=== PATIENT | male | born 1955 | race Caucasian/White ===

== ENCOUNTER 2019-12-23 18:48 | Emergency (ER) | payer MEDICARE ==
[2019-12-23 18:54] VITALS: TEMP 97.5
--- NOTE | 2019-12-23 19:01 | ED ---
Trauma HPI - General Chief Complaint: Extremity Injury, Upper Stated Complaint: Fall Time Seen by Provider: 12/23/19 18:58 Source: patient Mode of arrival: wheelchair Limitations: no limitations - History of Present Illness Initial Comments: Patient is 64-year-old male presents emergency Department with chief complaint of a fall. Patient states he tripped on a cord on his basement and fell on his elbow but states his pain is located in the left shoulder. Patient reports the pain is very sharp and intense. Patient states he did not take any medication to be the symptoms. Patient reports he "jammed the left shoulder". Patient also reports an injury to the head. He states there is some bleeding in the left supraorbital region. He denies any blood thinners. Denied loss of consciousness time of incident. Patient states he had "a beer". - Related Data Allergies Allergy/AdvReac Type Severity Reaction Status Date / Time No Known Allergies Allergy Verified 12/23/19 18:54 Review of Systems ROS Statement: Those systems with pertinent positive or pertinent negative responses have been documented in the HPI. ROS Other: All systems not noted in ROS Statement are negative. Past Medical History Past Medical History: No Reported History History of Any Multi-Drug Resistant Organisms: None Reported Past Surgical History: No Surgical Hx Reported Past Psychological History: No Psychological Hx Reported Smoking Status: Current every day smoker Past Alcohol Use History: None Reported, Daily Past Drug Use History: None Reported General Exam Limitations: no limitations General appearance: alert, in no apparent distress Head exam: Present: normocephalic, normal inspection. Absent: atraumatic (Abrasion in the left supraorbital region. No pain with extracted movements. Small laceration about 1 cm with irregular edges in the left supraorbital region.), other (Negative Navarrete sign, raccoon eyes, hemotympanum.) Eye exam: Present: normal appearance, PERRL, EOMI Pupils: Present: normal accommodation ENT exam: Present: normal exam, normal oropharynx, mucous membranes moist, TM's normal bilaterally, normal external ear exam Neck exam: Present: normal inspection, full ROM. Absent: tenderness Respiratory exam: Present: normal lung sounds bilaterally. Absent: respiratory distress, wheezes Cardiovascular Exam: Present: regular rate, normal rhythm, normal heart sounds GI/Abdominal exam: Present: soft. Absent: distended, tenderness, guarding Extremities exam: Present: tenderness (Tenderness at the injury site especially at the proximal left humerus.), normal capillary refill, other (+2 ulnar and radial pulses bilateral.). Absent: normal inspection (Bony Deformity in the left shoulder and proximal humerus. Left distal forearm laceration about 1.5 cm.), full ROM (Limited range of motion the left upper extremity.) Back exam: Present: normal inspection, full ROM. Absent: tenderness Neurological exam: Present: alert, oriented X3 Psychiatric exam: Present: normal affect, normal mood Skin exam: Present: warm, dry, intact, normal color Course Vital Signs 12/23/19 12/23/19 12/23/19 18:50 19:50 19:53 Temperature 97.5 F L Pulse Rate 85 82 84 Respiratory 16 22 20 Rate Blood Pressure 143/92 133/90 118/87 O2 Sat by Pulse 99 100 100 Oximetry 12/23/19 12/23/19 12/23/19 19:58 20:00 20:05 Temperature Pulse Rate 88 84 86 Respiratory 19 15 18 Rate Blood Pressure 142/85 127/66 151/74 O2 Sat by Pulse 100 100 100 Oximetry 12/23/19 12/23/19 12/23/19 20:10 20:15 20:30 Temperature Pulse Rate 82 86 90 Respiratory 19 18 19 Rate Blood Pressure 124/99 159/98 115/91 O2 Sat by Pulse 100 100 99 Oximetry 12/23/19 12/23/19 12/23/19 20:45 21:00 21:15 Temperature Pulse Rate 89 86 80 Respiratory 20 18 18 Rate Blood Pressure 122/87 130/82 125/78 O2 Sat by Pulse 99 100 99 Oximetry Procedures - Orthopedic Joint Reduction Joint #1 Consent Obtained: verbal consent, written consent Side: left Joint Reduction Location: shoulder (Anterior shoulder dislocation) Analgesia: procedural sedation (Propofol) Amount of Anesthetic Used (mLs): 250 Shoulder Technique Used (if applicable): traction/counter-traction, external rotation Technique Used: traction/counter-traction, direct manipulation Post-Reduction Neuro Exam: intact Post-Reduction Vascular Exam: intact Post Reduction X-Ray Obtained: Yes Post Reduction X-Ray Results: reduced Splint Applied: Yes (Sling) Patient Tolerated Procedure: well, no complications Medical Decision Making - Medical Decision Making Patient is 64-year-old male presenting to emergency with chief complaint of a fall. Patient fell on his left elbow but appears to have most of his pain left shoulder. On exam there appears to be bony deformity over the left shoulder. X-ray reveals an anterior dislocation. Patient was sedated using propofol and reduction of the left shoulder was performed. was present in the examination room throughout the whole procedure. Patient tolerated procedure well. Post reduction x-rays reveal a reduced left shoulder. Patient was given analgesia initially. He will be discharged with Tylenol 3 starter pack and advised not to drive or operate heavy machinery when taking the medication. He was advised to follow with project management specialist. Patient also had a headache injury. CT imaging offered, he declined. Patient also had 2 small lacerations in the left forearm and the left supraorbital region. Suturing was offered, patient declined. Steri-Strips were applied. Tetanus is up-to-date. Strict return parameters were thoroughly discussed the patient was understanding and agreeable. Case discussed with physician. - Lab Data Result diagrams: 12/23/19 19:37 12/23/19 19:37 Lab Results 12/23/19 12/23/19 12/23/19 Range/Units 19:37 19:37 19:37 WBC 14.1 H (3.8-10.6) k/uL RBC 5.29 (4.30-5.90) m/uL Hgb 16.5 (13.0-17.5) gm/dL Hct 50.2 (39.0-53.0) % MCV 94.9 (80.0-100.0) fL MCH 31.2 (25.0-35.0) pg MCHC 32.9 (31.0-37.0) g/dL RDW 13.5 (11.5-15.5) % Plt Count 278 (150-450) k/uL Neutrophils % 77 % Lymphocytes % 14 % Monocytes % 5 % Eosinophils % 2 % Basophils % 1 % Neutrophils # 10.8 H (1.3-7.7) k/uL Lymphocytes # 2.0 (1.0-4.8) k/uL Monocytes # 0.7 (0-1.0) k/uL Eosinophils # 0.3 (0-0.7) k/uL Basophils # 0.1 (0-0.2) k/uL PT 9.7 (9.0-12.0) sec INR 0.9 (<1.2) APTT 20.4 L (22.0-30.0) sec Sodium 138 (137-145) mmol/L Potassium 4.3 (3.5-5.1) mmol/L Chloride 105 (98-107) mmol/L Carbon Dioxide 23 (22-30) mmol/L Anion Gap 10 mmol/L BUN 16 (9-20) mg/dL Creatinine 1.07 (0.66-1.25) mg/dL Est GFR (CKD-EPI)AfAm 85 (>60 ml/min/1.73 sqM) Est GFR (CKD-EPI)NonAf 73 (>60 ml/min/1.73 sqM) Glucose 116 H (74-99) mg/dL Calcium 10.0 (8.4-10.2) mg/dL Total Bilirubin 0.6 (0.2-1.3) mg/dL AST 112 H (17-59) U/L ALT 124 H (4-49) U/L Alkaline Phosphatase 116 (38-126) U/L Total Protein 7.5 (6.3-8.2) g/dL Albumin 4.4 (3.5-5.0) g/dL Disposition Clinical Impression: Anterior dislocation of left shoulder, Fall, Laceration, Head injury Disposition: HOME SELF-CARE Condition: Fair Instructions (If sedation given, give patient instructions): Shoulder Dislocation (ED), Moderate Sedation (ED), Closed Reduction (ED) Additional Instructions: Follow with project management specialist. Return to emergency department if symptoms worsen. Is patient prescribed a controlled substance at d/c from ED?: No Referrals: None,Stated [Primary Care Provider] - 1-2 days Edmund Sandoval DO [Doctor of Osteopathic Medicine] - 1-2 days Time of Disposition: 20:51
[2019-12-23] MEDS ORDERED: MORPHINE SULFATE 4 MG/ML SYRINGE IM STA (19:10)
[2019-12-23] MEDS ORDERED: HYDROmorphone 1 MG/ML 1 ML SYRINGE IM STA (19:21)
--- NOTE | 2019-12-23 19:38 | XR ---
EXAMINATION TYPE: XR humerus LT DATE OF EXAM: 12/23/2019 COMPARISON: NONE HISTORY: Fall. Deformity. TECHNIQUE: 2 views FINDINGS: There is anterior dislocation of the humeral head. Elbow joint is not well seen. Scapula ap pears intact. IMPRESSION: Anterior dislocation of the shoulder joint.
--- NOTE | 2019-12-23 19:39 | XR ---
EXAMINATION TYPE: XR shoulder limited LT DATE OF EXAM: 12/23/2019 COMPARISON: NONE HISTORY: Fall. Pain. TECHNIQUE: Single view FINDINGS: There is anterior dislocation of the humeral head. Scapula is intact. AC joint is intact. IMPRESSION: Anterior dislocation of the shoulder joint.
[2019-12-23] MEDS ORDERED: PROPOFOL 10 MG/ML 20 ML VIAL IV ONE ×2 (19:42→19:53)
[2019-12-23 19:51] LABS: Basophils # (A) 0.1 k/uL (0-0.2); Basophils % (A) 1 %; Eosinophils # (A) 0.3 k/uL (0-0.7); Eosinophils % (A) 2 %; HCT 50.2 % (39.0-53.0); HGB 16.5 gm/dL (13.0-17.5); Lymphocytes % (A) 14 %; MCH 31.2 pg (25.0-35.0); MCHC 32.9 g/dL (31.0-37.0); MCV 94.9 fL (80.0-100.0); Mean Platelet Volume 7.2; Monocytes # (A) 0.7 k/uL (0-1.0); Monocytes % (A) 5 %; Neutrophils # (A) 10.8 k/uL (1.3-7.7); Neutrophils % (A) 77 %; Platelet Count 278 k/uL (150-450); RBC 5.29 m/uL (4.30-5.90); RDW 13.5 % (11.5-15.5); WBC 14.1 k/uL (3.8-10.6)
[2019-12-23 20:01] LABS: Albumin 4.4 g/dL (3.5-5.0); Potassium 4.3 mmol/L (3.5-5.1); Total Bilirubin 0.6 mg/dL (0.2-1.3); Total Protein 7.5 g/dL (6.3-8.2)
[2019-12-23 20:19] LABS: INR 0.9 (<1.2); Prothrombin Time 9.7 sec (9.0-12.0)
[2019-12-23 20:36] LABS: Partial Thromboplastin Time 20.4 sec (22.0-30.0)
--- NOTE | 2019-12-23 20:40 | XR ---
EXAMINATION TYPE: XR shoulder complete LT DATE OF EXAM: 12/23/2019 COMPARISON: Today HISTORY: Post reduction TECHNIQUE: 2 views FINDINGS: There is anatomic reduction of the glenohumeral joint. I see no fracture. IMPRESSION: Anatomic reduction. No fracture seen.
[2019-12-23] MEDS ORDERED: ACET/COD 300 MG/30 MG STARTER PACK 6 TAB BTL PO STA (21:10)
[2019-12-23 21:27] VITALS: RESP 18
[2019-12-23 21:28] VITALS: BP 125/78; PULSE 80
--- NOTE | 2020-01-03 08:32 | CDI ---
Dear Tommy Medellin DO please do addendum for Moderate sedetion start and stop time , Thank you, Nacho Her, Jogger Operator. If you have any questions, please contact Audio/Visual Manager at [phone]. mtdd
--- NOTE | 2020-01-25 15:31 | ED ---
Medical Decision Making - Medical Decision Making This is a 64-year-old male documentation for procedural sedation start and stop time performed by in - Lab Data Result diagrams: 12/23/19 19:37 12/23/19 19:37 Lab Results 12/23/19 12/23/19 12/23/19 Range/Units 19:37 19:37 19:37 WBC 14.1 H (3.8-10.6) k/uL RBC 5.29 (4.30-5.90) m/uL Hgb 16.5 (13.0-17.5) gm/dL Hct 50.2 (39.0-53.0) % MCV 94.9 (80.0-100.0) fL MCH 31.2 (25.0-35.0) pg MCHC 32.9 (31.0-37.0) g/dL RDW 13.5 (11.5-15.5) % Plt Count 278 (150-450) k/uL Neutrophils % 77 % Lymphocytes % 14 % Monocytes % 5 % Eosinophils % 2 % Basophils % 1 % Neutrophils # 10.8 H (1.3-7.7) k/uL Lymphocytes # 2.0 (1.0-4.8) k/uL Monocytes # 0.7 (0-1.0) k/uL Eosinophils # 0.3 (0-0.7) k/uL Basophils # 0.1 (0-0.2) k/uL PT 9.7 (9.0-12.0) sec INR 0.9 (<1.2) APTT 20.4 L (22.0-30.0) sec Sodium 138 (137-145) mmol/L Potassium 4.3 (3.5-5.1) mmol/L Chloride 105 (98-107) mmol/L Carbon Dioxide 23 (22-30) mmol/L Anion Gap 10 mmol/L BUN 16 (9-20) mg/dL Creatinine 1.07 (0.66-1.25) mg/dL Est GFR (CKD-EPI)AfAm 85 (>60 ml/min/1.73 sqM) Est GFR (CKD-EPI)NonAf 73 (>60 ml/min/1.73 sqM) Glucose 116 H (74-99) mg/dL Calcium 10.0 (8.4-10.2) mg/dL Total Bilirubin 0.6 (0.2-1.3) mg/dL AST 112 H (17-59) U/L ALT 124 H (4-49) U/L Alkaline Phosphatase 116 (38-126) U/L Total Protein 7.5 (6.3-8.2) g/dL Albumin 4.4 (3.5-5.0) g/dL Disposition Clinical Impression: Anterior dislocation of left shoulder, Fall, Laceration, Head injury Disposition: HOME SELF-CARE Condition: Fair Instructions (If sedation given, give patient instructions): Shoulder D islocation (ED), Moderate Sedation (ED), Closed Reduction (ED) Additional Instructions: Follow with spine specialist. Return to emergency department if symptoms worsen. Is patient prescribed a controlled substance at d/c from ED?: No Referrals: None,Stated [Primary Care Provider] - 1-2 days Edmund Sandoval DO [Doctor of Osteopathic Medicine] - 1-2 days Procedures - [place] Protocol (Time Out) Procedure Performed:: left shoulder reduction Performing Provider: Tommy Medellin Nurse: Katherine Yeager Respiratory Therapist: Taylor Eduardo Patient Identification (2 identifiers required): Chart, Verbal, Arm Band, Name, Birthdate Patient/Legal Adapted Physical Education Aide has Confirmed: Identity, Site, Procedure, Consent Site: left shoulder Site Marked: Yes Site Verified With Patient/Guardian: Yes Final Confirmation: Procedure, Site, Patient Position, Radiographs, Confirmed w/Provider - Procedural Sedation Procedural Sedation Start Time: 19:50 Procedural Sedation Stop Time: 20:45 Indications: fracture/dislocation reduction ASA Class: I Mallampati Airway Score: 1 Preparation: monitor car operator applied, pulse oximeter, capnometry used, supplemental O2 applied IV Propofol Dose (mgs): 200 Complications: none Interventions: oxygen applied, airway repositioned Patient Tolerated Procedure: well
== END 2019-12-23 21:29 | disposition home or self-care (01) ==
LOC: EC 18:48
DX: S43.015A Anterior dislocation of left humerus, initial encounter (principal); S51.812A Laceration without foreign body of left forearm, initial encounter; S05.42XA Penetrating wound of orbit with or without foreign body, left eye, initial encounter; S09.90XA Unspecified injury of head, initial encounter; F17.200 Nicotine dependence, unspecified, uncomplicated; Z53.20 Procedure and treatment not carried out because of patient's decision for unspecified reasons; W01.0XXA Fall on same level from slipping, tripping and stumbling without subsequent striking against object, initial encounter
CPT/HCPCS: 99284; 99152; 99153 ×3; 96372 ×2; 23650; 36415; 80053; 85025; 85610; 85730; 73030; 73020; 73060; J2270; J1170; J2704